=== PATIENT | female | born 1940 | race Caucasian/White ===

== ENCOUNTER 2017-06-17 17:38 | Outpatient (CLI) | END 2017-06-17 17:39 | disposition short-term general hospital (02) | LOC: AMBL 17:38 | PROVIDERS: ATTEND Internal Medicine | DX: R07.9 Chest pain, unspecified (principal); M25.511 Pain in right shoulder ==

== ENCOUNTER 2017-10-06 11:57 | Outpatient (CLI) ==
--- NOTE | 2017-10-06 13:18 | DEXA ---
EXAM: Bone densitometry. History: Menopause Findings: Evaluation of the lumbar spine reveals a total bone mineral density of 1.097 grams per centimeter squ ared with T-score of negative 0.7. Evaluation of the left hip reveals a total bone mineral density of 0.858 grams per centimeter squared with T-score of negative 1.2. Evaluation of the right hip reveals a total bone mineral density of 0.828 grams per centimeter square d with T-score of negative 1.4 Impression: 1. Normal bone mineral density of the lumbar spine. 2. Osteopenia of the bilateral hips
== END 2017-10-06 11:58 | disposition home or self-care (01) ==
LOC: RAD 11:57
PROVIDERS: ATTEND Family Medicine
DX: Z78.0 Asymptomatic menopausal state (principal)